=== PATIENT | female | born 1980 | race African-American/Black ===

== ENCOUNTER → 2020-03-24 | Outpatient (CLI) | payer OTHER ==
--- NOTE | 2020-03-24 16:44 | KCIC ---
EXAM: Cervical spine, 5 views. HISTORY: Paresthesia. Left shoulder pain. COMPARISON: None. FINDINGS: 5 views of the cervical spine are obtained. There is minimal retrolisthesis of C4 on C5. The vertebral jim are normal in height and the disc spaces are preserved. There is no significant foraminal stenosis. No fracture is seen. There is a calcification within the submandibular soft tissues which may be due to incidental sialolithiasis. IMPRESSION: No acute osseous finding. Electronically signed by: Naomi Centeno MD (03/24/2020 4:41 PM) [facility]
== END | disposition home or self-care (01) ==
LOC: KCIC 15:11
PROVIDERS: ATTEND Family Medicine
DX: M43.12 Spondylolisthesis, cervical region (principal); K11.5 Sialolithiasis; R20.2 Paresthesia of skin; M25.512 Pain in left shoulder
CPT/HCPCS: 72050